=== PATIENT | female | born 1980 | race Hispanic/Latino ===

== ENCOUNTER 2024-09-28 09:26 | Emergency (ER) | payer SELFPAY ==
--- NOTE | 2024-09-28 09:52 | ED.GENMED ---
History of Present Illness
General
Chief Complaint: Musculo-Skeletal Complaint
Source: patient
Exam Limitations: none
Time Seen by Provider: 09/28/24 09:40
Nursing documentation reviewed up to this point in time: agreed with
History of Present Illness
History of Present Illness:
Patient is a 43-year-old female who works at [employer] and describes mechanical fall. She landed on her right outstretched arm and complains of some mild right wrist hand pain and right shoulder pain. She denies hitting her head
denies any other injuries.
Phy Exam
General Physical Exam
General Presentation: no apparent distress
General age: appears stated age
General Skin: warm and dry
General Habitus: normal
General Mental: alert
General Hydration: appears well hydrated
Neurological Exam
Neurological Exam: alert and oriented x3
Musculoskeletal Exam
Musculoskeletal Exam: other (Right upper extremity with strong pulses mildly tender to proximal humerus area and first metacarpal/distal radius region no obvious deformity normal sensation abrasions lacerations)
Skin Exam
Skin Exam: normal color and warm/dry
Psychiatric Exam
Psychiatric Exam: normal mood/affect
Course
Orders/Labs/Results
Orders:
Orders
09/28/24 09:33
CR Shoulder, Trauma - Right Urgent
Comment:
Reason For Exam: fall at work
Wrist, Right 3 Views [CR Wrist - Right Min 3 Views] Urgent
Comment:
Reason For Exam: fall at work
09/28/24 09:50
Hand, Right 3 View [CR Hand - Right Min 3 Views] Urgent
Comment:
Reason For Exam: trauma
09/28/24 09:53
Ibuprofen [Motrin] 600 mg PO NOW STA
09/28/24 10:04
Ibuprofen [Motrin] 600 mg .ROUTE .STK-MED ONE
09/28/24 10:39
Vital Signs- Treatment ONCE
Frequency: Once
Vital Signs
Initial and Last Documented VS:
Initial Vital Signs
Temp Pulse Resp BP Pulse Ox
98.4 F 84 17 178/100 99
09/28/24 10:03 09/28/24 10:03 09/28/24 10:03 09/28/24 10:03 09/28/24 10:03
Last Documented Vital Signs
Temp Pulse Resp BP Pulse Ox
98.1 F 84 17 143/87 99
09/28/24 10:54 09/28/24 10:54 09/28/24 10:54 09/28/24 10:54 09/28/24 10:54
MDM/Problems Addressed
Differential Diagnosis Includes:
not limited to: Sprain strain fracture
MDM/Problems Addressed:
No obvious bony abnormalities x-rays are negative. Will DC with outpt f/u by [facility]. d/c RICE/NSAIDS
*Radiology
Radiology exam reviewed: radiology read reviewed
*Pulse Oximetry
Patient hypoxic: no
*Critical Care Note
Total Time (30-74mins, 75-104mins- exclusive of procedures): Not Applicable
ED Attending Note
-
Portions of this chart may have been created with voice recognition software.� Occasional wrong word or��sound alike� substitutions may have occurred due to the inherent limitations of voice recognition software.
Discharge Plan
Departure
Patient Disposition: Home (Routine Discharge)
Date of Disposition: 09/28/24
Time of Disposition: 10:39
Patient with high blood pressure during this ER visit?: Yes
Covid-19: Not Applicable
Discharge Problem:
Shoulder sprain, Sprain of wrist
Instructions: Sprain (DC), Using Cold for Pain, BLOOD PRESSURE
Referrals:
NONE,* [Family Provider, Internal Medicine]
Dane Diaz MD [Active, Orthopedics]
Stand Alone Forms: Return to Work
Activity Restrictions/Additional Instructions:
Ice the affected area for the next 24 hours 20 minutes at a time several times a day. Ibuprofen as needed. Follow-up with work health in the next several days. Return if any worsening of symptoms. He may follow-up with orthopedics as needed.
Interventions
Interventions:
*Risk Screen - Suicide Last Done: 09/28/24 09:32
*General Assessment Last Done: 09/28/24 09:32
*Neglect/Abuse Screening Last Done: 09/28/24 09:32
*ED COVID-19 Vaccine History Last Done: 09/28/24 09:33
*Nursing Disposition Last Done: 09/28/24 11:00
ED-Musculoskeletal Assessment Last Done: 09/28/24 09:37
Discharge Date and Time
Discharge Date/Time: 09/28/24 11:16
Print Language: [id number]
[2024-09-28 10:03] VITALS: BP 178/100
[2024-09-28] MEDS: MOTRIN 600 MG PO (10:13)
[2024-09-28 10:54] VITALS: BP 143/87
== END 2024-09-28 11:16 | disposition home or self-care (01) ==
LOC: EMR 09:26
PROVIDERS: EMERGENCY PHYSICIAN Emergency Medicine
DX: S63.501A Unspecified sprain of right wrist, initial encounter (principal); S43.401A Unspecified sprain of right shoulder joint, initial encounter; W19.XXXA Unspecified fall, initial encounter; Y93.H3 Activity, building and construction; Y92.214 College as the place of occurrence of the external cause; Y99.0 Civilian activity done for income or pay; E11.9 Type 2 diabetes mellitus without complications; I10 Essential (primary) hypertension
CPT/HCPCS: 99284; 73030; 73110; 73130